=== PATIENT | female | born 1975 | race Caucasian/White ===

== ENCOUNTER 2020-08-23 11:22 | Emergency (ER) | payer MEDICARE, OTHER ==
[~2020-08-23] VITALS: Ht 177.8 cm; Wt 113.4 kg
[2020-08-23] MEDS ORDERED: METO100ER PO (11:36)
[2020-08-23] MEDS ORDERED: Clobetasol Prop50 ML (11:36)
[2020-08-23] MEDS ORDERED: GLIMEPIRIDE4 MG PO (11:36)
[2020-08-23] MEDS ORDERED: OMEPRAZOLE CAP 20M (11:36)
[2020-08-23] MEDS ORDERED: METFORMIN ER1000 M1 PO (11:36)
[2020-08-23] MEDS ORDERED: LOSARTAN POT TAB 100 (11:36)
[2020-08-23] MEDS ORDERED: PRAZOSIN HCL 2 MG (11:37)
[2020-08-23] MEDS ORDERED: XARELTO20 M1 PO (11:37)
[2020-08-23] MEDS ORDERED: CYCLOBENZAPR TAB 10M (11:37)
[2020-08-23] MEDS ORDERED: PREGABALIN75 MG PO (11:37)
[2020-08-23] MEDS ORDERED: EPINEPHRIN0.3 MG/0.1 (11:37)
[2020-08-23] MEDS ORDERED: METFORMIN HCL500 MG PO (11:38)
[2020-08-23] MEDS ORDERED: HIZENTRA SQ (11:38)
[2020-08-23] MEDS ORDERED: TRULICITY3 MG/0.5 M SQ (11:39)
[2020-08-23 13:33] LABS: BASOPHILS ABSOLUTE AUTO 0.05 K/mm3 (0.00-0.23); BASOPHILS PERCENT AUTO 1 % (0-2); EOSINOPHILS ABSOLUTE AUTO 0.25 K/mm3 (0.00-0.68); EOSINOPHILS PERCENT AUTO 4 % (0-6); Hematocrit 38.5 % (33.0-51.0); Hemoglobin 13.2 g/dL (11.5-16.0); IMMATURE GRAN ABSOLUTE AUTO 0.03 K/mm3 (0.00-0.10); IMMATURE GRAN PERCENT AUTO 1 % (0-1); LYMPHOCYTES ABSOLUTE AUTO 1.58 K/mm3 (0.84-5.20); LYMPHOCYTES PERCENT AUTO 27 % (21-46); MONOCYTES ABSOLUTE AUTO 0.46 K/mm3 (0.16-1.47); MONOCYTES PERCENT AUTO 8 % (4-13); Mean Corpuscular HGB 30.4 pg (26.0-34.0); Mean Corpuscular HGB Conc 34.3 g/dL (31.5-36.5); Mean Corpuscular Volume 89 fL (80-100); Mean Platelet Volume 11.8 fL (9.1-12.4); NEUTROPHILS ABSOLUTE AUTO 3.58 K/mm3 (1.96-9.15); NEUTROPHILS PERCENT AUTO 60 % (41-73); Platelet Count 215 K/mm3 (150-400); RDW Standard Deviation 42.5 fL (35.1-46.3); Red Blood Cell Count 4.34 M/mm3 (3.80-5.20); White Blood Cell Count 5.95 K/mm3 (4.00-11.30)
[2020-08-23 13:51] LABS: Alanine Aminotransfer (ALT/SGP 39 U/L (12-78); Albumin, Blood 3.9 g/dL (3.4-5.0); Alk Phos 50 U/L (50-136); Anion Gap 7 mmol/L (6-16); Aspartate Aminotrans (AST/SGOT 24 U/L (12-37); Bilirubin, Total 0.5 mg/dL (0.1-1.0); Blood Urea Nitrogen 7 mg/dL (8-24); CO2, Blood 25 mmol/L (21-32); Calcium, Blood 9.5 mg/dL (8.5-10.1); Chloride, Blood 103 mmol/L (98-108); Creatinine, Blood 0.39 mg/dL (0.40-1.00); Globulin, Blood 3.8 g/dL (2.2-4.0); Glomerular Filtration Rate >60 (60-); Glucose, Blood 142 mg/dL (70-99); Potassium, Blood 3.7 mmol/L (3.5-5.5); Sodium, Blood 135 mmol/L (136-145); Total Protein, Blood 7.7 g/dL (6.4-8.2)
[2020-08-23 14:30] LABS: Source, Urine Clean Catch
[2020-08-23 14:50] LABS: Appearance, Urine Clear (Clear); Bilirubin, Urine Neg (Neg); Blood, Urine Neg (Neg); Color, Urine Yellow (P-Yellow); Glucose Qualitative, Urine Neg (Neg); Ketones, Urine Neg (Neg); Leukocyte Esterase, Urine 3+ (Neg); Nitrite, Urine Pos (Neg); Protein, Urine Neg (Neg); Urobilinogen, Urine NORM (Normal)
[2020-08-23 15:03] LABS: Red Blood Cells, Urine 0-2 /hpf (0-2); White Blood Cells, Urine 25-50 /hpf (0-5)
[2020-08-23 15:04] LABS: Bacteria Many /hpf; Squamous Epithelial Cells Few /hpf (Few)
[2020-08-23] MEDS ORDERED: CEFP200 PO (15:15)
[2020-08-23] MEDS ORDERED: Diflucan150 MG PO (15:27)
== END 2020-08-23 15:34 | disposition home or self-care (01) ==
LOC: ER 11:22
PROVIDERS: Emergency Medicine
DX: N12 Tubulo-interstitial nephritis, not specified as acute or chronic (principal); N39.0 Urinary tract infection, site not specified; I10 Essential (primary) hypertension; E11.9 Type 2 diabetes mellitus without complications; Z79.899 Other long term (current) drug therapy
CPT/HCPCS: 36415; 74176; 80053; 81001; 84484; 85025; 87077; 87086; 87186; 96374; 99284-25; J1885; J3010

== ENCOUNTER → 2020-08-24 | Outpatient (CLI) | payer MEDICARE, OTHER ==
[~2020-08-24] MED LIST: CEFP200 PO; CYCLOBENZAPR TAB 10M; Clobetasol Prop50 ML; Diflucan150 MG PO; EPINEPHRIN0.3 MG/0.1; GLIMEPIRIDE4 MG PO; HIZENTRA SQ; LOSARTAN POT TAB 100; METFORMIN ER1000 M1 PO; METFORMIN HCL500 MG PO; METO100ER PO; OMEPRAZOLE CAP 20M; PRAZOSIN HCL 2 MG; PREGABALIN75 MG PO; TRULICITY3 MG/0.5 M SQ; XARELTO20 M1 PO
== END | disposition home or self-care (01) ==
LOC: LAB EV 13:17 → LAB SHORT 13:17
DX: N12 Tubulo-interstitial nephritis, not specified as acute or chronic (principal)
CPT/HCPCS: 87077; 87086; 87186

== ENCOUNTER → 2020-09-08 | Outpatient (CLI) | payer MEDICARE, OTHER | LOC: LAB SHORT 10:52 → LAB 10:52 | DX: N39.0 Urinary tract infection, site not specified (principal) | CPT/HCPCS: 87086 ==

== ENCOUNTER 2020-10-09 14:55 | Emergency (ER) | payer MEDICARE, OTHER | END 2020-10-10 15:43 | disposition left against medical advice (07) | LOC: ER 14:55 | DX: Z53.21 Procedure and treatment not carried out due to patient leaving prior to being seen by health care provider (principal) ==

== ENCOUNTER → 2021-05-02 | Outpatient (CLI) | payer MEDICARE, OTHER ==
[2021-05-04 15:21] LABS: CORONAVIRUS (COVID19) CSH-NRL Negative (Negative)
== END | disposition home or self-care (01) ==
LOC: LAB SHORT 17:50
PROVIDERS: Physician Assistant
DX: Z20.822 Contact with and (suspected) exposure to COVID-19 (principal)
CPT/HCPCS: U0003

== ENCOUNTER 2023-05-17 04:34 | Day surgery (SDC) | payer MEDICARE, OTHER ==
[2023-05-17] VITALS (24 sets, daily range): BP systolic 121–154; BP diastolic 79–93
== END 2023-05-17 17:58 | disposition home or self-care (01) ==
LOC: ATC 04:34
DX: M33.19 Other dermatomyositis with other organ involvement (principal); F31.9 Bipolar disorder, unspecified; I10 Essential (primary) hypertension; E11.9 Type 2 diabetes mellitus without complications; Z88.8 Allergy status to other drugs, medicaments and biological substances; Z88.5 Allergy status to narcotic agent; Z91.048 Other nonmedicinal substance allergy status
CPT/HCPCS: 96365; 96366; J1459

== ENCOUNTER 2023-05-19 02:48 | Day surgery (SDC) | payer MEDICARE, OTHER ==
[2023-05-19] VITALS (17 sets, daily range): BP systolic 107–147; BP diastolic 67–87
== END 2023-05-19 17:21 | disposition home or self-care (01) ==
LOC: ATC 02:48
DX: M33.19 Other dermatomyositis with other organ involvement (principal); M50.30 Other cervical disc degeneration, unspecified cervical region; Z79.899 Other long term (current) drug therapy; I10 Essential (primary) hypertension; F31.9 Bipolar disorder, unspecified; E10.9 Type 1 diabetes mellitus without complications
CPT/HCPCS: 96365; 96366; J1459

== ENCOUNTER 2023-06-18 01:29 | Day surgery (SDC) | payer MEDICARE, OTHER ==
[2023-06-18] VITALS (11 sets, daily range): BP systolic 113–157; BP diastolic 75–93
[2023-06-18] MEDS ORDERED: IMMUN GLOB G(IGG)/PRO/IGA 0-50 100 ML IV SCH (07:00)
[2023-06-18] MEDS ORDERED: Loratadine 10 MG Tab PO SCH (07:15)
[2023-06-18] MEDS ORDERED: Famotidine 20 MG Tab PO SCH (07:20)
--- NOTE | 2023-06-18 13:44 | NUR ---
1345: PT AND THIS RN BOTH AGREE THAT WE ARE GOING TO TRY TO INCREASE RATE SLOWLY, INCREASED AT THIS TIME TO 105/HR
--- NOTE | 2023-06-18 14:39 | NUR ---
9085 PT WOULD LIKE TO INCREASE RATE TO 110 AND TRY IT, PT VISITING WITH FRIEND, STATES THAT SHE HAS A SLIGHT COUGH, BUT SHE STATES THAT SHE DOESN'T HAVE IT AT PRESENT TIME AND WILL GO FOR RATE OF 110
== END 2023-06-18 16:40 | disposition home or self-care (01) ==
LOC: ATC 01:29
DX: M33.19 Other dermatomyositis with other organ involvement (principal); F31.9 Bipolar disorder, unspecified; I10 Essential (primary) hypertension; E10.9 Type 1 diabetes mellitus without complications
CPT/HCPCS: J1459

== ENCOUNTER 2023-08-09 02:06 | Day surgery (SDC) | payer MEDICARE, OTHER ==
[2023-08-09] MEDS ORDERED: IMMUN GLOB G(IGG)/PRO/IGA 0-50 100 ML IV SCH (06:00)
[2023-08-09 07:57] VITALS: BP 122/66
[2023-08-09 08:07] VITALS: BP 130/82
[2023-08-09 08:21] VITALS: BP 131/82
--- NOTE | 2023-08-09 11:26 | NUR ---
PTS ORDER STAES 30GRAMS AND PT WANTS ONLY 30 GRAMS. TOOK A BOTTLE BACK TO PHARMACY
== END 2023-08-09 11:25 | disposition home or self-care (01) ==
LOC: ATC 02:06
DX: M33.19 Other dermatomyositis with other organ involvement (principal); E10.9 Type 1 diabetes mellitus without complications; I10 Essential (primary) hypertension; F31.9 Bipolar disorder, unspecified; Z88.5 Allergy status to narcotic agent; Z88.8 Allergy status to other drugs, medicaments and biological substances
CPT/HCPCS: 96365; 96366; J1459

== ENCOUNTER 2023-08-12 01:22 | Day surgery (SDC) | payer MEDICARE, OTHER ==
[2023-08-12] MEDS ORDERED: IMMUN GLOB G(IGG)/PRO/IGA 0-50 100 ML IV SCH (06:00)
[2023-08-12 13:52] VITALS: BP 137/90
[2023-08-12 14:31] VITALS: BP 143/90
[2023-08-12 14:41] VITALS: BP 142/81
[2023-08-12 14:56] VITALS: BP 137/85
== END 2023-08-12 17:15 | disposition home or self-care (01) ==
LOC: ATC 01:22
DX: M33.13 Other dermatomyositis without myopathy (principal); I10 Essential (primary) hypertension; E10.9 Type 1 diabetes mellitus without complications; Z79.01 Long term (current) use of anticoagulants; Z79.899 Other long term (current) drug therapy; Z88.8 Allergy status to other drugs, medicaments and biological substances; Z88.1 Allergy status to other antibiotic agents
CPT/HCPCS: 96365; 96366; J1459

== ENCOUNTER 2023-08-16 04:12 | Day surgery (SDC) | payer MEDICARE, OTHER ==
[2023-08-16] MEDS ORDERED: IMMUN GLOB G(IGG)/PRO/IGA 0-50 100 ML IV SCH (06:00)
[2023-08-16 07:40] VITALS: BP 145/84
[2023-08-16 08:11] VITALS: BP 119/78
[2023-08-16 08:26] VITALS: BP 120/73
[2023-08-16 08:43] VITALS: BP 134/80
[2023-08-16 08:56] VITALS: BP 120/72
[2023-08-16 09:11] VITALS: BP 120/71
== END 2023-08-16 11:20 | disposition home or self-care (01) ==
LOC: ATC 04:12
DX: M33.13 Other dermatomyositis without myopathy (principal); I10 Essential (primary) hypertension; E10.9 Type 1 diabetes mellitus without complications; Z79.899 Other long term (current) drug therapy; Z79.01 Long term (current) use of anticoagulants; Z88.8 Allergy status to other drugs, medicaments and biological substances; Z88.5 Allergy status to narcotic agent
CPT/HCPCS: 96365; 96366; J1459

== ENCOUNTER 2023-11-05 02:17 | Day surgery (SDC) | payer MEDICARE, OTHER ==
[~2023-11-05] VITALS: Wt 137.7 kg
[2023-11-05] MEDS ORDERED: Acetaminophen 500 MG Tab PO PRN (07:15)
[2023-11-05] MEDS ORDERED: MethylPREDNISolone Sod Succ 125 MG Vial IV SCH ×2 (07:15→15:50)
[2023-11-05] MEDS ORDERED: Loratadine 10 MG Tab PO SCH (07:15)
[2023-11-05 13:34] VITALS: BP 139/97
[2023-11-05 14:28] VITALS: BP 120/79
[2023-11-05 14:45] VITALS: BP 119/81
[2023-11-05 14:48] LABS: BASOPHILS ABSOLUTE AUTO 0.04 K/mm3 (0.00-0.23); BASOPHILS PERCENT AUTO 1 % (0-2); EOSINOPHILS ABSOLUTE AUTO 0.19 K/mm3 (0.00-0.68); EOSINOPHILS PERCENT AUTO 3 % (0-6); Hematocrit 35.6 % (33.0-51.0); Hemoglobin 11.7 g/dL (11.5-16.0); IMMATURE GRAN ABSOLUTE AUTO 0.03 K/mm3 (0.00-0.10); IMMATURE GRAN PERCENT AUTO 1 % (0-1); LYMPHOCYTES ABSOLUTE AUTO 1.75 K/mm3 (0.84-5.20); LYMPHOCYTES PERCENT AUTO 31 % (21-46); MONOCYTES ABSOLUTE AUTO 0.32 K/mm3 (0.16-1.47); MONOCYTES PERCENT AUTO 6 % (4-13); Mean Corpuscular HGB 27.9 pg (26.0-34.0); Mean Corpuscular HGB Conc 32.9 g/dL (31.5-36.5); Mean Corpuscular Volume 85 fL (80-100); Mean Platelet Volume 11.8 fL (9.1-12.4); NEUTROPHILS ABSOLUTE AUTO 3.37 K/mm3 (1.96-9.15); NEUTROPHILS PERCENT AUTO 59 % (41-73); Platelet Count 224 K/mm3 (150-400); RDW Coefficient Variation 14.9 % (11.7-14.2); RDW Standard Deviation 45.3 fL (35.1-46.3)
[2023-11-05 15:00] VITALS: BP 138/87
[2023-11-05 15:07] VITALS: BP 132/72
[2023-11-05 15:34] LABS: Albumin, Blood 3.9 g/dL (3.4-5.0); Bilirubin, Total 0.4 mg/dL (0.1-1.0); Bun/Creatinine Ratio 45.1 (12.0-20.0); C-REACTIVE PROTEIN, EXT RANGE 0.857 mg/dL (0.000-0.300); Calcium, Blood 9.5 mg/dL (8.5-10.1); Creatinine, Blood 0.4 mg/dL (0.40-1.00); Percent Saturation 21.9 % (15.0-50.0); Total Protein, Blood 7.9 g/dL (6.4-8.2)
[2023-11-05] MEDS ORDERED: DiphenhydrAMINE HCl 50 MG/ML 1ML Vial IV SCH (15:50)
[2023-11-05 16:31] VITALS: BP 135/82
--- NOTE | 2023-11-05 17:01 | NUR ---
PT DECLINED POST REACTION IV BENADRYL PT DID NOT HAVE SOMEONE TO GIVE HER A RIDE HOME AND SHE WAS CONCERNED THAT THE IV BENADRYL WOULD MAKE HER TOO SLEEPY TO DRIVE. PT DID TAKE THE ADDITIONAL DOSE OF IV SOLUMEDROL. PT DID REPORT A HEADACHE AT DISCHARGE BUT STATED THAT IS NORMAL FOR HER AFTER RECEIVING STEROIDS. AT DISCHARGE PT STATED NO CHEST PAIN, NO SOB, MILD INTERMITTENT COUGH HAD IMPROVED, NO RASH, NO ITCHING, NO SWELLING. PT FELT COMFORTABLE TO DRIVE HOME. PT EDUCATED ABOUT CALLING 911 OR GOING TO ER IF ANY SYMPTOMS RETURN OR [facility]. PT VERBALIZED UNDERSTANDING.
== END 2023-11-05 16:39 | disposition home or self-care (01) ==
LOC: ATC 02:17
PROVIDERS: Internal Medicine Rheumatology
DX: M33.19 Other dermatomyositis with other organ involvement (principal); E55.9 Vitamin D deficiency, unspecified; E53.8 Deficiency of other specified B group vitamins; F31.9 Bipolar disorder, unspecified; E10.9 Type 1 diabetes mellitus without complications; I10 Essential (primary) hypertension; M50.30 Other cervical disc degeneration, unspecified cervical region; Z79.01 Long term (current) use of anticoagulants; Z88.8 Allergy status to other drugs, medicaments and biological substances; Z88.5 Allergy status to narcotic agent
CPT/HCPCS: 80053; 82306; 82550; 82607; 82728; 82746; 83540; 83550; 85025; 85651; 86140; 96375; 96376; 96413; J2919; J7050; J9312

== ENCOUNTER 2024-11-16 18:49 | Emergency (ER) | payer MEDICARE, OTHER ==
[~2024-11-16] VITALS: Ht 180.3 cm; Wt 136.1 kg
[2024-11-16 19:25] LABS: BASOPHILS ABSOLUTE AUTO 0.04 K/mm3 (0.00-0.23); BASOPHILS PERCENT AUTO 1 % (0-2); EOSINOPHILS ABSOLUTE AUTO 0.22 K/mm3 (0.00-0.68); EOSINOPHILS PERCENT AUTO 3 % (0-6); Hematocrit 34.3 % (33.0-51.0); Hemoglobin 10.9 g/dL (11.5-16.0); IMMATURE GRAN ABSOLUTE AUTO 0.05 K/mm3 (0.00-0.10); IMMATURE GRAN PERCENT AUTO 1 % (0-1); LYMPHOCYTES ABSOLUTE AUTO 1.07 K/mm3 (0.84-5.20); LYMPHOCYTES PERCENT AUTO 12 % (21-46); MONOCYTES ABSOLUTE AUTO 0.61 K/mm3 (0.16-1.47); MONOCYTES PERCENT AUTO 7 % (4-13); Mean Corpuscular HGB Conc 31.8 g/dL (31.5-36.5); Mean Corpuscular Volume 89 fL (80-100); NEUTROPHILS ABSOLUTE AUTO 6.66 K/mm3 (1.96-9.15); NEUTROPHILS PERCENT AUTO 77 % (41-73); NRBC ABSOLUTE 0.00 K/mm3 (0.00-0.02); NRBC Auto 0.0 /100 WBC (0.0-0.2); Platelet Count 285 K/mm3 (150-400); RDW Coefficient Variation 15.2 % (11.7-14.2); RDW Standard Deviation 49.7 fL (35.1-46.3)
[2024-11-16 19:51] LABS: Source, Urine Clean Catch
[2024-11-16 19:53] LABS: Bilirubin, Urine Neg (Neg); Glucose Qualitative, Urine Neg (Neg); Ketones, Urine Neg (Neg); Leukocyte Esterase, Urine 2+ (Neg); Protein, Urine 1+ (Neg); Specific Gravity, Urine 1.010 (1.003-1.022); Urobilinogen, Urine NORM (Normal)
[2024-11-16 20:02] LABS: Color, Urine Yellow (P-Yellow)
[2024-11-16 20:04] LABS: Red Blood Cells, Urine 0-2 /hpf (0-2)
[2024-11-16 20:10] LABS: Alanine Aminotransfer (ALT/SGP 31.0 U/L (12-78); Albumin, Blood 3.2 g/dL (3.4-5.0); Albumin/Globulin Ratio 0.7 (0.8-1.8); Anion Gap 9.0 mmol/L (3-11); Aspartate Aminotrans (AST/SGOT 28.0 U/L (12-37); Bilirubin, Total 0.6 mg/dL (0.1-1.0); Blood Urea Nitrogen 7.0 mg/dL (8-24); CO2, Blood 27.0 mmol/L (21-32); Calcium, Blood 9.4 mg/dL (8.5-10.1); Chloride, Blood 104.0 mmol/L (98-108); Creatinine, Blood 0.41 mg/dL (0.40-1.00); Globulin, Blood 4.3 g/dL (2.2-4.0); Glucose, Blood 96.0 mg/dL (70-99); Potassium, Blood 3.6 mmol/L (3.5-5.5); Sodium, Blood 136.0 mmol/L (136-145); Total Protein, Blood 7.5 g/dL (6.4-8.2)
[2024-11-16 20:32] LABS: Influenza A, PCR NEGATIVE (NEGATIVE); Influenza B, PCR NEGATIVE (NEGATIVE); Resp Syncytial Virus, PCR NEGATIVE (NEGATIVE); SARS-Cov-2 (COVID-19) PCR, MMC NEGATIVE (NEGATIVE)
[2024-11-16] MEDS ORDERED: CEPH500 PO (20:43)
[2024-11-16] MEDS ORDERED: AZIT250 PO (20:43)
[2024-11-16 21:39] VITALS: BP 133/85
[2024-11-19 12:08] LABS: B PERTUSSIS/PARAPERTUSS SOURCE Not Provided; BORD PARAPERTUSSIS BY PCR Not Detected; BORDETELLA PERTUSSIS BY PCR Not Detected
== END 2024-11-16 21:40 | disposition home or self-care (01) ==
LOC: ER 18:49
PROVIDERS: Emergency Medicine
DX: A37.90 Whooping cough, unspecified species without pneumonia (principal); N39.0 Urinary tract infection, site not specified; I10 Essential (primary) hypertension; E11.9 Type 2 diabetes mellitus without complications; K21.9 Gastro-esophageal reflux disease without esophagitis; Z86.711 Personal history of pulmonary embolism; Z88.6 Allergy status to analgesic agent; Z88.1 Allergy status to other antibiotic agents; Z88.5 Allergy status to narcotic agent; Z88.3 Allergy status to other anti-infective agents; Z91.018 Allergy to other foods; Z88.8 Allergy status to other drugs, medicaments and biological substances; Z91.048 Other nonmedicinal substance allergy status; Z79.84 Long term (current) use of oral hypoglycemic drugs; Z79.01 Long term (current) use of anticoagulants; Z79.85 Long-term (current) use of injectable non-insulin antidiabetic drugs; Z79.899 Other long term (current) drug therapy
CPT/HCPCS: 71046; 80053; 81001; 83880; 84484; 85025; 87077; 87086; 87186; 87637; 87798; 93005; 93010; 99284-25